=== PATIENT | male | born 1995 | race African-American/Black ===

== ENCOUNTER 2017-09-21 16:01 | Emergency (ER) | payer OTHER ==
[~2017-09-21] VITALS: Ht 180.3 cm; Wt 91.0 kg
[~2017-09-21 16:01] MED LIST: AMOXICILLIN500 MG OR; CEPHALEXIN500 M1 PO; CORTISPORIN OP7.5 ML OP; FLONASE0.05 %; KEFLEX500 MG OR; KEFLEX500 MG PO; NO; NO HOME MEDS; ROBITUSSIN AC10 ML OR; ROBITUSSIN AC10 ML PO; TAM75CAP PO; TOBRAMYCIN0.3 % OD
[2017-09-21 16:19] LABS: IMMATURE GRANULOCYTES 0.5 % (0.0-1.0); MEAN CORPUSCULAR HGB 29.9 pG CALC (26.0-32.0); MEAN CORPUSCULAR HGB CONC 32.4 g/L CALC (32.0-36.0); NEUT# 8.79 thou/uL (1.82-7.42); RED BLOOD COUNT 4.58 mill/uL (4.70-6.10); RED CELL DISTRI WIDTH 13.1 % (11.5-15.5)
[2017-09-21 16:24] LABS: HEMATOCRIT 42.3 % (39.0-50.0); HEMOGLOBIN 13.7 g/dl (14.0-18.0); MEAN CELL VOLUME 92.4 fL CALC (80.0-100.0)
[2017-09-21 16:36] LABS: ALBUMIN 4.8 g/dL (3.2-5.0); ALKALINE PHOSPHATASE 85 u/l (38-126); ANION GAP 17 (6-22 (CALC)); BILIRUBIN, TOTAL 1.3 mg/dL (0.0-1.4); BUN 14 mg/dL (8-21); BUN/CREATININE RATIO 10 (12-20 (CALC)); CARBON DIOXIDE 22 mmol/l (22-30); CHLORIDE 101 mmol/l (95-108); CREATININE 1.3 mg/dL (0.7-1.3); GFR > 60 ML/MIN (>=60 (CALC)); GFR FOR AFR.AMER. > 60 ML/MIN (>=60 (CALC)); MAGNESIUM 1.9 mg/dL (1.6-2.3); POTASSIUM 2.9 mmol/l (3.5-5.1); SGOT/AST 34 u/l (17-59); SGPT/ALT 40 u/l (21-72); SODIUM 138 mmol/l (137-146); TOTAL PROTEIN 7.4 g/dL (6.3-8.2)
[2017-09-21 17:37] VITALS: BP 119/74
== END 2017-09-21 17:46 | disposition home or self-care (01) | DRG 923 ==
LOC: ED 16:01
PROVIDERS: Emergency Medicine
DX: T67.5XXA Heat exhaustion, unspecified, initial encounter (principal); T67.2XXA Heat cramp, initial encounter; E87.6 Hypokalemia; X30.XXXA Exposure to excessive natural heat, initial encounter; Y93.H9 Activity, other involving exterior property and land maintenance, building and construction; Y92.007 Garden or yard of unspecified non-institutional (private) residence as the place of occurrence of the external cause

== ENCOUNTER 2018-03-13 01:18 | Emergency (ER) | payer OTHER ==
[~2018-03-13] VITALS: Ht 180.3 cm; Wt 83.4 kg
[2018-03-13 03:12] VITALS: BP 130/62
== END 2018-03-13 03:12 | disposition home or self-care (01) ==
LOC: ED 01:18
DX: S79.912A Unspecified injury of left hip, initial encounter (principal); M25.552 Pain in left hip; W24.0XXA Contact with lifting devices, not elsewhere classified, initial encounter; Y93.89 Activity, other specified; Y92.89 Other specified places as the place of occurrence of the external cause; Y99.0 Civilian activity done for income or pay

== ENCOUNTER 2023-10-21 16:25 | Emergency (ER) | payer OTHER ==
[~2023-10-21] VITALS: Ht 180.3 cm; Wt 95.0 kg
[2023-10-21] MEDS ORDERED: LIDOcaine HCl 1% (Local Anesth.) 20 ML VIAL STI STA (17:20)
[2023-10-21] MEDS ORDERED: POVIDONE IODINE 0.5 OZ/BTL TOP ONE (17:20)
[2023-10-21] MEDS ORDERED: BACTRIM DS1 TAB PO (17:25)
[2023-10-21] MEDS ORDERED: CEPHALEXIN500 M1 PO (17:25)
[2023-10-21 17:41] VITALS: BP 114/66
[2023-10-21 17:42] VITALS: BP 114/66
== END 2023-10-21 17:50 | disposition home or self-care (01) ==
LOC: ED 16:25
DX: L02.31 Cutaneous abscess of buttock (principal)